=== PATIENT | male | born 2000 | race Caucasian/White ===

== ENCOUNTER 2021-05-16 10:48 | Emergency (ER) | payer OTHER ==
[2021-05-16 12:00] VITALS: BP 132/74
[2021-05-16] MEDS ORDERED: IBUPROFEN600 MG PO (13:29)
== END 2021-05-16 13:41 | DRG 563 ==
LOC: ED 10:48
DX: S93.402A Sprain of unspecified ligament of left ankle, initial encounter (principal); F17.200 Nicotine dependence, unspecified, uncomplicated; W22.09XA Striking against other stationary object, initial encounter; Y92.149 Unspecified place in prison as the place of occurrence of the external cause